=== PATIENT | male | born 1950 | race Caucasian/White ===

== ENCOUNTER → 2017-07-30 | Outpatient (REF) | payer MEDICARE ==
[2017-08-01 14:18] LABS: PHENOBARBITAL (PRIMIDONE) None Detected ug/mL (15-40); PRIMIDONE, SERUM 6.9 ug/mL (5.0-12.0)
== END ==
LOC: M LABNEURO 09:32
DX: R25.1 Tremor, unspecified (principal)
CPT/HCPCS: 80188

== ENCOUNTER → 2022-02-20 | Outpatient (CLI) | payer MEDICARE | LOC: M PAIN 09:00 | PROVIDERS: ATTEND Nurse Practitioner Family | DX: M79.10 Myalgia, unspecified site (principal); G89.29 Other chronic pain; I10 Essential (primary) hypertension; K21.9 Gastro-esophageal reflux disease without esophagitis; Z86.59 Personal history of other mental and behavioral disorders; Z87.891 Personal history of nicotine dependence; Z88.8 Allergy status to other drugs, medicaments and biological substances; Z79.899 Other long term (current) drug therapy ==